=== PATIENT | female | born 1975 | race Caucasian/White ===

== ENCOUNTER → 2018-08-31 | Outpatient (REF) | payer OTHER | LOC: M SFHCLERA 17:43 | PROVIDERS: ATTEND Nurse Practitioner Family | DX: J02.9 Acute pharyngitis, unspecified (principal) ==

== ENCOUNTER → 2018-10-18 | Outpatient (CLI) | payer OTHER ==
--- NOTE | 2018-10-18 15:35 | REP ---
Clinical: Lumbago . Technique: AP, lateral, bilateral oblique, and coned-down views. Findings: Alignment and lordosis is maintained. The vertebral bodies including transverse process and spinous processes are intact and essentially age-appropriate. There is no evidence for acute fracture / compression injury or subluxation. No evidence for spondylolysis or spondylolisthesis. No significant degenerative changes are appreciated. Impression: Age-appropriate lumbosacral spine radiographs Electronically Signed by Hema Delarosa MD 10/18/2018 03:27 P
--- NOTE | 2018-10-18 16:50 | REP ---
MRI thoracic spine without contrast: History: Lumbago with right-sided sciatica. No comparison thoracic spine imaging. Technique: Sagittal and axial T1 and T2-weighted scans are acquired in the usual fashion with and without fat saturation. Sequences include spin echo, turbo spin-echo, and STIR imaging sequences. MRI findings: Thoracic vertebral body heights are preserved. Alignment is normal. No bony destructive lesion is seen. Thoracic cord is normal in coarse caliber and signal intensity on T1 and T2-weighted scans. There is mild degenerative disc narrowing at the thoracic disc levels from T4-5 through T9-10 consistent with early degenerative disc disease. At T6-7 there is a tiny central focal disc protrusion seen on T2-weighted scans. No cord compression. At the T7-8 level, there is a very small left posterior disc protrusion effacing the ventral subarachnoid space but not compressing the cord. At the T8-9 level, there is a moderate sized central focal disc protrusion which indents the ventral margin of the thoracic cord and subtly displaces it posteriorly. There is moderate and ligamentum flavum hypertrophy bilaterally at T10-11, right more so than left. This indents the dorsal lateral margin of the thecal sac. No central canal stenosis is seen. No neural foraminal lesion is seen. Impression: Degenerative disc changes. Small focal disc protrusion at the T6-7 and T7-8. Moderate sized central focal disc protrusion at T8-9 with mild cord compression. Moderate ligamentum flavum hypertrophy indenting the dorsal lateral margin of the thecal sac at the T10-11, right more so than left. Electronically Signed by Gómez Doshi MD 10/18/2018 06:40 P
--- NOTE | 2018-10-18 17:07 | REP ---
MRI brain without contrast: History: Brain with aura. . Comparison study: No comparison brain imaging. Technique: Axial and sagittal imaging planes are utilized for T1 and T2-weighted scans. Sequences include spin-echo, fast spin echo, FLAIR, and diffusion weighted sequences. MRI findings: No bony calvarial lesion is seen. Craniocervical junction and upper cervical cord are normal in appearance. There is no MR evidence of significant paranasal sinus disease. No intraorbital abnormality is seen. The lateral, third, and fourth ventricles are normal in size and position. Beckford-white differentiation pattern is intact above and below the tentorium. There is no evidence of intracranial hemorrhage. No mass, infarction, extra-axial fluid collection or midline shift is seen. No abnormal white matter lesion is seen. There are dilated perivascular spaces in the inferior aspect of the basal ganglia bilaterally. This is normal variant. Impression: Negative noncontrast brain MRI study. Electronically Signed by Gómez Doshi MD 10/18/2018 04:58 P
--- NOTE | 2018-10-18 17:15 | REP ---
MRI lumbar spine without contrast: History: Lumbago with sciatica, right side, comparison is made with today's lumbar spine radiographs. Technique: Sagittal and axial T1 and T2-weighted scans are acquired in the usual fashion with and without fat saturation. Sequences include spin echo, turbo spin-echo, and STIR imaging sequences. MRI findings: Lumbar vertebral body heights are preserved. Alignment is normal. Pedicles and posterior elements are intact. There is no evidence of spondylolysis or spondylolisthesis. Disc spaces are maintained in height and signal intensity. The tip of the conus medullaris is normal in position and appearance at the T12-L1 level. No extra vertebral abnormality is observed. There is no evidence of central canal stenosis, disc protrusion, neural foraminal narrowing at any level. There is minimal disc bulging and mild disc narrowing at the L2-3 intervertebral disc level. There is mild facet hypertrophy bilaterally L5-S1 and L4-5. Impression: Mild degenerative disc disease L2-3. Mild facet hypertrophy bilaterally at L4-5 and L5-S1. Otherwise negative. Electronically Signed by Gómez Doshi MD 10/18/2018 06:41 P
== END ==
LOC: M PLARAD 13:38
PROVIDERS: ATTEND Nurse Practitioner Family
DX: G43.101 Migraine with aura, not intractable, with status migrainosus (principal); M54.41 Lumbago with sciatica, right side